=== PATIENT | male | born 1995 | race Caucasian/White ===

== ENCOUNTER 2021-10-14 17:31 | Emergency (ER) | payer OTHER, SELFPAY ==
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
[2021-10-14 17:45] VITALS: BP 110/74; PULSE 89; RESP 14; O2SAT 95; BMI 28.0
[2021-10-14] MEDS: Haloperidol Lactate 5 MG/ML VIAL IM (17:45)
[2021-10-14] MEDS: diphenhydrAMINE HCL 50 MG/ML VIAL IM (17:45)
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
[2021-10-14 18:32] LABS: MANUAL DIFF FLAG NO
[2021-10-14 18:35] LABS: Basophils Absolute Auto 0.1 X10*3/uL (0.0-0.2); Eosinophils Percent Auto 0.5 % (0-4); Hematocrit 42.7 % (42.0-52.0); Imm Gran Abs Auto 0.02 X10*3/uL (0.00-0.03); Imm Gran Pct Auto 0.3 % (0.0-0.4); Lymphocytes Absolute Auto 1.4 X10*3/uL (1.2-4.9); Lymphocytes Percent Auto 18.8 % (20-40); Mean Corpuscular HGB Conc 35.1 g/dl (31.0-36.0); Mean Corpuscular Hemoglobin 31.8 pg (27.0-33.0); Mean Corpuscular Volume 90.5 fL (80.0-98.0); Mean Platelet Volume 9.4 fL (9.4-12.4); Monocytes Absolute Auto 0.5 X10*3/uL (0.1-1.2); Monocytes Percent Auto 6.3 % (2-11); Neutrophils Absolute Auto 5.6 x10*3/uL (2.0-8.3); Neutrophils Percent Auto 73.1 % (45-73); Platelet Count 260 X10*3/uL (160-400); Red Blood Count 4.72 X10*6/uL (4.60-5.80); White Blood Count 7.6 X10*3/uL (4.8-10.8)
[2021-10-14 18:37] LABS: Appearance Urine CLEAR; Color Urine DK YELLOW; Glucose Urine UA NEG (NEG); Leukocyte Esterase Urine NEG (NEG); Nitrite Urine NEG (NEG); PH 6.5 (5.0-8.0); Urine Blood NEG (NEG); Urine Ketones 5 MG/DL (NEG); Urine Protein TRACE MG/DL (NEG-TRACE)
[2021-10-14 18:46] LABS: Ethanol < 10 mg/dL
[2021-10-14 18:48] LABS: Anion Gap 12 (12-20); Blood Urea Nitrogen 11 mg/dL (9-16); Calcium 10.3 mg/dL (8.4-10.2); Carbon Dioxide 26 mmol/L (22-29); Chloride 106 mmol/L (96-108); Estimated Glomerular Filt Rate > 60; Glucose Random 110 mg/dL (60-115); Potassium 4.1 mmol/L (3.3-5.1); Sodium 140 mmol/L (135-145)
[2021-10-14 18:49] LABS: Amphetamine Screen Urine POSITIVE (Not Detect); Barbiturates, Urine Not Detected (Not Detect); Benzodiazepines Screen Urine POSITIVE (Not Detect); Cannabinoid Screen Urine POSITIVE (Not Detect); Cocaine Screen Urine Not Detected (Not Detect); Fentanyl, urine POSITIVE (Not Detect); Opiate Screen Urine POSITIVE (Not Detect); Phencyclidine Screen Urine Not Detected (Not Detect)
[2021-10-14 19:14] VITALS: BP 100/69; PULSE 84; RESP 14; O2SAT 100
[2021-10-14 19:40] LABS: COVID-19 Test Negative (Negative); IDNOW Serial# 55D5AD1C
[2021-10-14] MEDS: LORazepam 2 MG/ML VIAL IM (19:41)
--- NOTE | 2021-10-14 19:42 | PC.NURSE ---
PT WAS MEDICATED BY RACHELL SAXENA AND CARLOS RN @[id number]. THIS RN DOCUMENTED MEDICATIONS
--- NOTE | 2021-10-14 20:40 | MHC.RECOVSUP ---
? Reason for consult:Recovery Support o Current location:[address] [place] [address] o Identified substance use concern:Polysubstance - Support ? Intervention: o Harm reduction discussion ? Plan: o Follow up tomorrow o ? Additional information:Patient is uncooperative. Patient looked directly at me an refused to engage with me. f/u tomorrow
[2021-10-15 00:31] VITALS: RESP 12
--- NOTE | 2021-10-15 00:52 | PC.NURSE ---
Patient refusing any interventions and refused tetanus
--- NOTE | 2021-10-15 01:01 | PC.NURSE ---
Patient woken up and given a sandwich and soda. Patient has been discharged.
== END 2021-10-15 01:21 | disposition home or self-care (01) ==
PROVIDERS: Nurse Practitioner Family; Emergency Provider Emergency Medicine
DX: F19.159 Other psychoactive substance abuse with psychoactive substance-induced psychotic disorder, unspecified (principal); R45.6 Violent behavior; S00.81XA Abrasion of other part of head, initial encounter; S80.211A Abrasion, right knee, initial encounter; S60.811A Abrasion of right wrist, initial encounter; X58.XXXA Exposure to other specified factors, initial encounter; Y93.9 Activity, unspecified; Y92.9 Unspecified place or not applicable; Y99.9 Unspecified external cause status; Z20.822 Contact with and (suspected) exposure to COVID-19
CPT/HCPCS: 36415; 70450; 80048; 80307; 81003; 82077; 85025; 87635; 96372; 99284; 99285; J1200; J2060

== ENCOUNTER 2021-10-26 21:29 | Emergency (ER) | payer OTHER, SELFPAY ==
[2021-10-26 21:39] VITALS: BP 117/71; BP 120/68; PULSE 72; PULSE 96; RESP 22; TEMP 36.7; O2SAT 98; O2SAT 99; BMI 29.2
--- NOTE | 2021-10-26 22:03 | ED_ITS ---
HPI - General Adult General Chief complaint: ETOH/Substance Use Stated complaint: WITHDRAWALS Time Seen by Provider: 10/26/21 22:01 Source: patient and EMS Mode of arrival: EMS Limitations: no limitations History of Present Illness HPI narrative: 26-year-old male BIBA for evaluation of drug withdrawal symptoms. 26-year-old male with history of IV drug abusing and alcohol abuse, patient stated that his been using street Xanax about 20 mg daily, last use was 24 hours ago, patient was brought in by ambulance after having withdrawal symptoms, been anxious, muscle twitch, patient reported that he had withdrawal symptoms earlier. Patient declined SI or HI or hallucination. Related Data Allergies Allergy/AdvReac Type Severity Reaction Status Date / Time No Known Allergies Allergy Unverified 04/05/20 19:51 [No Known Allergies*] Review of Systems Review of Systems: All other systems are reviewed and are negative Constitutional: Reports as per HPI and Reports no additional constitutional complaints Eyes: Reports as per HPI and Reports no additional eye complaints Reports system reviewed and no additional complaints, except as documented Cardiovascular: Reports as per HPI and Reports no additional cardiovascular complaints Respiratory: Reports as per HPI and Reports no additional respiratory complaints Gastrointestinal: Reports as per HPI and Reports no additional gastrointestinal complaints Genitourinary: Reports no additional female genitourinary complaints Musculoskeletal: Reports no additional musculoskeletal complaints Skin/Breast: Reports system reviewed and no additional complaints, except as docu Psychiatric: Reports no additional psychiatric complaints Endocrine: Reports no additional endocrine complaints Hematologic/Lymphatic: Reports no additional hematologic/lymphatic complaints Allergic/Immunologic: Reports no additional allergic/immunologic complaints Reports system reviewed and no additional complaints, except as documented and Reports Abnormal speech present [facility], [facility] Social History Social History Alcohol intake: current Advance Directives: No Advance Directives Information Provided: No Physical Exam ED Vital Signs: Vital Signs - 24 hr 10/26/21 21:39 10/26/21 22:27 Temperature 98.0 F 98.0 F Pulse Rate 96 89 Respiratory Rate 22 H 15 Blood Pressure 117/71 113/62 Pulse Oximetry 98 95 BMI result Body Mass Index 29.2 Vital signs have been reviewed as appeared to be correct. Blood pressure normal. Heart rate normal. Respiration rate normal. Temperature normal. Oxygen saturation normal. Appearance: Anxious,Oriented X3. No acute distress. Head: Normal external exam. Normocephalic. Atraumatic. No Garza signs noted. No raccoon eyes noted Eyes: PERRLA. EOMI. Conjunctiva and sclera normal. Eyelids normal. ENT: TM's Normal. Pharynx normal. Uvula midline. Moist mucous membranes. No trismus noted. No drooling noted. No muffled voice noted. Neck: Normal inspection. Neck supple. FROM. No adenopathy. Thyroid Normal. No meningeal signs. No neck mass noted. CVS: Normal heart rate and rhythm. Heart sound normal. No murmurs noted. Pulses normal throughout. Respiratory: No respiratory distress. Painless inspiration. Breath sounds normal. No wheezes/rales/rhonchi noted. Chest nontender. No accessory muscle usage noted or decreased air movement noted. Abdomen: Soft and nontender. Bowel sounds normal in all 4 quadrants. No distention noted. No organomegaly noted. No visible injury noted. Back: No CVA tenderness. Full range of motion noted. Skin: Skin warm and dry. Normal skin color. Normal skin turgor. No rashes/lesions/lacerations noted. Extremities: No lower extremity edema. Extremities exhibit normal range of motion. Extremities nontender. Neuro: Oriented X 3. Cranial nerve exam: II-XII are grossly intact No motor deficit. No sensory deficit. Reflexes normal. Course Course Course Narrative: Assessment and plan. 26-year-old male history of Xanax abuse last use was 24 hours ago came in for evaluation of withdrawal symptoms, patient has unremarkable labs, stable vital signs. Patient was given 1 mg of Ativan IV, patient is in a showing signs or symptoms of benzo withdrawal, patient requesting to leave, patient was offered care team evaluation and possible placement to detox, patient declined I would like to go home. Medical Decision Making Lab Data Lab results reviewed: Yes I reviewed the patient's lab results. Result diagrams: 10/26/21 22:29 10/26/21 22:29 Labs: Lab Results 10/26/21 10/26/21 10/26/21 Range/Units 22:29 22:29 22:29 WBC 8.7 (4.8-10.8) X10*3/uL RBC 4.21 L (4.60-5.80) X10*6/uL Hgb 13.3 L (14.0-18.0) g/dl Hct 37.9 L (42.0-52.0) % MCV 90.0 (80.0-98.0) fL MCH 31.6 (27.0-33.0) pg MCHC 35.1 (31.0-36.0) g/dl RDW 12.1 (11.0-16.0) % Plt Count 309 (160-400) X10*3/uL MPV 9.3 L (9.4-12.4) fL Immature Gran % (Auto) 0.2 (0.0-0.4) % Neut % (Auto) 77.0 H (45-73) % Lymph % (Auto) 13.0 L (20-40) % [place] % (Auto) 8.5 (2-11) % Eos % (Auto) 0.7 (0-4) % Baso % (Auto) 0.6 (0-2) % Lymph # (Auto) 1.1 L (1.2-4.9) X10*3/uL [place] # (Auto) 0.7 (0.1-1.2) X10*3/uL Eos # (Auto) 0.1 (0.0-0.4) X10*3/uL Baso # (Auto) 0.1 (0.0-0.2) X10*3/uL Abs Immat Gran (auto) 0.02 (0.00-0.03) X10*3/uL Absolute Neuts (auto) 6.7 (2.0-8.3) x10*3/uL Absolute Nucleated RBC 0.000 (0.0-0.012) X10*3/uL Nucleated RBC % (auto) 0.0 (0.0-0.2) /100WBC Sodium 140 (135-145) mmol/L Potassium 3.7 (3.3-5.1) mmol/L Chloride 108 (96-108) mmol/L Carbon Dioxide 20 L (22-29) mmol/L Anion Gap 16 (12-20) BUN 7 L (9-16) mg/dL Creatinine 0.76 (0.5-1.4) mg/dL Estim Creat Clear Calc 155.3 Estimated GFR > 60 Random Glucose 96 (60-115) mg/dL Calcium 9.4 D (8.4-10.2) mg/dL Total Bilirubin 0.6 (0.0-1.0) mg/dL Direct Bilirubin 0.3 (0.0-0.5) mg/dL AST 30 (5-37) U/L ALT 35 (0-40) U/L Alkaline Phosphatase 80 (39-117) U/L Total Protein 7.2 (6.5-8.0) g/dL Albumin 4.3 (3.5-5.0) g/dL Lipase 10 (8-78) U/L Ethyl Alcohol < 10 mg/dL Discharge Plan Discharge Clinical Impression: Substance abuse Patient Disposition: Home, Self-Care Instructions: Polysubstance Abuse (ED) Referrals: Physician,Twila J [Primary Care Provider] -
[2021-10-26] MEDS: LORazepam 2 MG/ML VIAL 1 MG IVPUSH (22:24)
[2021-10-26] MEDS: 0.9 % Sodium Chloride 1,000 ML 999 ML IV (22:24)
[2021-10-26 22:27] VITALS: BP 113/62; PULSE 89; RESP 15; TEMP 36.7; O2SAT 95
[2021-10-26 22:40] LABS: Basophils Absolute Auto 0.1 X10*3/uL (0.0-0.2); Basophils Percent Auto 0.6 % (0-2); Eosinophils Absolute Auto 0.1 X10*3/uL (0.0-0.4); Eosinophils Percent Auto 0.7 % (0-4); Hematocrit 37.9 % (42.0-52.0); Hemoglobin 13.3 g/dl (14.0-18.0); Imm Gran Abs Auto 0.02 X10*3/uL (0.00-0.03); Imm Gran Pct Auto 0.2 % (0.0-0.4); Lymphocytes Absolute Auto 1.1 X10*3/uL (1.2-4.9); MANUAL DIFF FLAG NO; Mean Corpuscular HGB Conc 35.1 g/dl (31.0-36.0); Mean Corpuscular Hemoglobin 31.6 pg (27.0-33.0); Mean Platelet Volume 9.3 fL (9.4-12.4); Monocytes Absolute Auto 0.7 X10*3/uL (0.1-1.2); Monocytes Percent Auto 8.5 % (2-11); Neutrophils Absolute Auto 6.7 x10*3/uL (2.0-8.3); Platelet Count 309 X10*3/uL (160-400); Red Blood Count 4.21 X10*6/uL (4.60-5.80); Red Cell Distribution Width 12.1 % (11.0-16.0); White Blood Count 8.7 X10*3/uL (4.8-10.8)
[2021-10-26 22:54] LABS: Ethanol < 10 mg/dL
[2021-10-26 22:56] LABS: Alanine Aminotransferase 35 U/L (0-40); Albumin Level 4.3 g/dL (3.5-5.0); Alkaline Phosphatase 80 U/L (39-117); Anion Gap 16 (12-20); Aspartate Amino Transferase 30 U/L (5-37); Bilirubin Direct 0.3 mg/dL (0.0-0.5); Bilirubin Total 0.6 mg/dL (0.0-1.0); Blood Urea Nitrogen 7 mg/dL (9-16); Calcium 9.4 mg/dL (8.4-10.2); Carbon Dioxide 20 mmol/L (22-29); Chloride 108 mmol/L (96-108); Creatinine Clr Calc Pharmacy 155.3; Estimated Glomerular Filt Rate > 60; Glucose Random 96 mg/dL (60-115); Lipase 10 U/L (8-78); Potassium 3.7 mmol/L (3.3-5.1); Sodium 140 mmol/L (135-145); Total Protein 7.2 g/dL (6.5-8.0)
[2021-10-26 23:31] VITALS: BP 111/83; PULSE 95; RESP 18; O2SAT 98
== END 2021-10-26 23:45 | disposition home or self-care (01) ==
PROVIDERS: Emergency Provider Emergency Medicine
DX: F19.10 Other psychoactive substance abuse, uncomplicated (principal); F41.9 Anxiety disorder, unspecified; F10.10 Alcohol abuse, uncomplicated; Y90.0 Blood alcohol level of less than 20 mg/100 ml
CPT/HCPCS: 36415; 80048; 80076; 82077; 83690; 85025; 96361; 96374; 99284; J2060

== ENCOUNTER 2021-10-27 00:09 | Emergency (ER) | payer OTHER, SELFPAY ==
[2021-10-27 00:59] VITALS: BP 109/75; PULSE 88; RESP 18; TEMP 36.9; O2SAT 98; BMI 26.6
--- NOTE | 2021-10-27 02:30 | ED.GENADULT ---
HPI - General Adult General Chief complaint: General Medical Stated complaint: pain everywhere Time Seen by Provider: 10/27/21 02:29 Source: patient Mode of arrival: ambulatory Limitations: no limitations History of Present Illness HPI narrative: 26-year-old male history of drug abuse, came in for a concern of withdrawal symptoms. Patient use street Xanax 20 mg daily last use was 24 hours ago patient was seen in the emergency department earlier today was discharged with stable vital sign and no symptoms of withdrawal, patient is homeless have no place to go, patient is declining to discuss with care team or going to a detox patient is opposing going to detox. Patient is asking for Xanax or benzo to help him to relax, at this point patient is not showing symptoms of withdrawal and have stable vital signs. Related Data Allergies Allergy/AdvReac Type Severity Reaction Status Date / Time No Known Allergies Allergy Unverified 04/05/20 19:51 [No Known Allergies*] Review of Systems Review of Systems: All other systems are reviewed and are negative Constitutional: Reports as per HPI and Reports no additional constitutional complaints Eyes: Reports as per HPI and Reports no additional eye complaints Reports system reviewed and no additional complaints, except as documented Cardiovascular: Reports as per HPI and Reports no additional cardiovascular complaints Respiratory: Reports as per HPI and Reports no additional respiratory complaints Gastrointestinal: Reports as per HPI and Reports no additional gastrointestinal complaints Genitourinary: Reports no additional female genitourinary complaints Musculoskeletal: Reports no additional musculoskeletal complaints Skin/Breast: Reports system reviewed and no additional complaints, except as docu Psychiatric: Reports no additional psychiatric complaints Endocrine: Reports no additional endocrine complaints Hematologic/Lymphatic: Reports no additional hematologic/lymphatic complaints Allergic/Immunologic: Reports no additional allergic/immunologic complaints Reports system reviewed and no additional complaints, except as documented and Reports Abnormal speech present [facility] Social History Social History Alcohol intake: current Advance Directives: No Advance Directives Information Provided: No Physical Exam ED Vital Signs: Vital Signs - 24 hr 10/27/21 00:59 10/27/21 03:26 Temperature 98.5 F Pulse Rate 88 82 Respiratory Rate 18 18 Blood Pressure 109/75 115/75 Pulse Oximetry 98 99 BMI result Body Mass Index 26.6 Vital signs have been reviewed as appeared to be correct. Blood pressure normal. Heart rate normal. Respiration rate normal. Temperature normal. Oxygen saturation normal. Appearance: Alert. Oriented X3. No acute distress. Head: Normal external exam. Normocephalic. Atraumatic. No Garza signs noted. No raccoon eyes noted Eyes: PERRLA. EOMI. Conjunctiva and sclera normal. Eyelids normal. ENT: TM's Normal. Pharynx normal. Uvula midline. Moist mucous membranes. No trismus noted. No drooling noted. No muffled voice noted. Neck: Normal inspection. Neck supple. FROM. No adenopathy. Thyroid Normal. No meningeal signs. No neck mass noted. CVS: Normal heart rate and rhythm. Heart sound normal. No murmurs noted. Pulses normal throughout. Respiratory: No respiratory distress. Painless inspiration. Breath sounds normal. No wheezes/rales/rhonchi noted. Chest nontender. No accessory muscle usage noted or decreased air movement noted. Abdomen: Soft and nontender. Bowel sounds normal in all 4 quadrants. No distention noted. No organomegaly noted. No visible injury noted. Back: No CVA tenderness. Full range of motion noted. Skin: Skin warm and dry. Normal skin color. Normal skin turgor. No rashes/lesions/lacerations noted. Extremities: No lower extremity edema. Extremities exhibit normal range of motion. Extremities nontender. Neuro: Oriented X 3. Cranial nerve exam: II-XII are grossly intact No motor deficit. No sensory deficit. Reflexes normal. Course Course Course Narrative: Assessment and plan. 26-year-old male history of street drug abuser, patient is declining going to a detox or discussing with care team, patient is seeking benzo in the emergency department, patient have stable vital sign with no clinical symptoms of withdrawal patient is receiving Zofran and Flexeril. Discharge Plan Discharge Clinical Impression: Substance abuse Patient Disposition: Home, Self-Care Instructions: Polysubstance Abuse (ED) Referrals: Physician,Twila J [Primary Care Provider] -
[2021-10-27 03:26] VITALS: BP 115/75; PULSE 82; RESP 18; O2SAT 99
== END 2021-10-27 06:19 | disposition home or self-care (01) ==
PROVIDERS: Emergency Provider Emergency Medicine
DX: M79.10 Myalgia, unspecified site (principal); Z79.899 Other long term (current) drug therapy
CPT/HCPCS: 99283

== ENCOUNTER 2021-11-05 05:15 | Emergency (ER) | payer OTHER, SELFPAY ==
[2021-11-05 05:20] VITALS: BP 113/72; PULSE 60; O2SAT 100
[2021-11-05 05:26] VITALS: BP 107/61; PULSE 81; RESP 14; TEMP 36.8; O2SAT 98; BMI 27.3
--- NOTE | 2021-11-05 06:37 | ED.GENADULT ---
HPI - General Adult General Chief complaint: Seizure Stated complaint: seizure? Time Seen by Provider: 11/05/21 06:37 Source: patient Mode of arrival: EMS History of Present Illness HPI narrative: 26-year-old male with arrival by EMS and known benzodiazepine dependence states that he had an unwitnessed seizure. Patient reports that his friend witnessed him having a seizure and he suspects that it occurred due to benzo withdrawal. Patient denies any fever, chills, nausea, vomiting, diaphoresis. Patient does report that last benzodiazepine was 2 days ago and denies any seizure history. He is declining any detox and denies any other alcohol or drug use. Related Data Allergies Allergy/AdvReac Type Severity Reaction Status Date / Time No Known Allergies Allergy Unverified 04/05/20 19:51 [No Known Allergies*] Review of Systems Review of Systems: Pertinent positives and negatives as stated in HPI 10 point review of systems is otherwise negative PMFSH Past Medical History Source: nursing notes reviewed Social History Social History Alcohol intake: current Alcohol intake frequency: does not drink Patient Tobacco Use Status: Current everyday Tobacco user Smoked in Last 30 Days: Yes Use of substances other than those prescribed or required for medical reasons: Yes Substance Use Type: Other Substance Use Type Other:: BENZO Last Used Substance: Days (ago) Advance Directives: No Advance Directives Information Provided: Yes Physical Exam ED Vital Signs: Vital Signs - 24 hr 11/05/21 05:26 Temperature 98.2 F Pulse Rate 81 Respiratory Rate 14 Blood Pressure 107/61 Pulse Oximetry 98 BMI result Body Mass Index 27.3 VITAL SIGNS: Reviewed. GENERAL: Well developed, well nourished, in no acute distress. HEAD: Normocephalic/atraumatic EYES: PERRLA, EOMI EARS: Ext canals without abnormality, TMs non-bulging and non-erythematous NOSE: Nares patent bilateral OROPHARYNX: no oral lesions noted, posterior pharynx clear NECK: Supple, no adenopathy LUNGS: Normal breath sounds. No adventitious sounds or accessory muscle use. SpO2<98> CARDIOVASCULAR: Regular rate and rhythm without noted murmurs ABDOMEN: Soft, non-tender, non-distended with bowel sounds, no nausea or vomiting noted SKIN: Inspection of the skin reveals no rashes, no diaphoresis NEUROLOGIC: Alert and oriented x 4. Strength and sensation to light touch were grossly intact x 4, no tremor Course Course Course Narrative: 26-year-old male with history and clinical presentation consistent with benzodiazepine dependency but adamantly declines options for detox at this time. Other he states that he had a seizure there is limited evidence of any benzodiazepine withdrawal, specifically, he is not tachycardic he is not nauseous or vomiting or diaphoretic he is noted to be restless. Patient was provided with Zofran and Bentyl and will otherwise be discharged home in stable condition with and a list of detox facilities. Discharge Plan Discharge Clinical Impression: Benzodiazepine dependence Patient Disposition: Home, Self-Care Instructions: Benzodiazepine Abuse (ED) Additional Instructions: You have been provided with a list of detox options, I strongly recommend you consider these. Return to the ER for any new or concerning symptoms. Referrals: Dolores Boggs MD [Primary Care Provider] -
[2021-11-05] MEDS: clonazePAM 0.5 MG TABLET 0.25 MG PO (06:48)
[2021-11-05] MEDS: Dicyclomine HCl 10 MG CAPSULE PO (06:55)
[2021-11-05] MEDS: Ondansetron ODT 4 MG TAB.RAPDIS TRANSLINGU (06:55)
[2021-11-05 06:56] VITALS: BP 137/80; PULSE 61; RESP 16; O2SAT 99
== END 2021-11-05 07:12 | disposition home or self-care (01) ==
PROVIDERS: Emergency Provider Student in an Organized Health Care Education/Training Program; PCP Internal Medicine
DX: R56.9 Unspecified convulsions (principal); F13.20 Sedative, hypnotic or anxiolytic dependence, uncomplicated; F17.210 Nicotine dependence, cigarettes, uncomplicated; Z71.6 Tobacco abuse counseling
CPT/HCPCS: 99283; 99284

== ENCOUNTER 2022-01-25 20:22 | Emergency (ER) | payer OTHER, SELFPAY ==
[2022-01-25] MEDS: Midazolam HCl/PF 2 MG/2 ML VIAL IM (20:30)
[2022-01-25] MEDS: diphenhydrAMINE HCL 50 MG/ML VIAL IM (20:30)
[2022-01-25] MEDS: Haloperidol Lactate 5 MG/ML VIAL IM (20:30)
[2022-01-25 20:33] VITALS: BP 99/64; PULSE 88; RESP 20; TEMP 36.9; O2SAT 96; BMI 25.8
--- NOTE | 2022-01-25 20:36 | ED_ITS ---
HPI - Altered Mental Status General Chief Complaint: Altered Mental Status Stated Complaint: ams combative Time Seen by Provider: 01/25/22 20:34 Source: patient and EMS Mode of arrival: EMS Limitations: altered mental status History of Present Illness HPI narrative: fighting with EMS found walking around rotary no signs of trauma, laughing stating he does meth complaint: altered mental status and intoxication Onset (ago): unknown Severity: moderate Consistency of symptoms: constant Context: drug abuse Associated symptoms: denies other symptoms Related Data Allergies Allergy/AdvReac Type Severity Reaction Status Date / Time No Known Allergies Allergy Unverified 04/05/20 19:51 [No Known Allergies*] Review of Systems Review of Systems: ROS unable to be obtained due to altered mental status [facility] Past Medical History Source: old records reviewed Medical History Active substance abuse Social History Social History Alcohol intake: current Alcohol intake frequency: does not drink Patient Tobacco Use Status: Current everyday Tobacco user Substance Use Type: Other Physical Exam ED Vital Signs: Vital Signs - 24 hr 01/25/22 20:33 01/25/22 22:09 Temperature 98.5 F 97.5 F Pulse Rate 88 96 Respiratory Rate 20 16 Blood Pressure 99/64 101/61 Pulse Oximetry 96 95 Oxygen Delivery Method Room Air Room Air BMI result Body Mass Index 25.8 Appearance: Alert. Oriented X1. intermittently calm then yelling at EMS - profane language wants to fight, fuck all of you. attempting to leave Eyes: Pupils equal, round and reactive to light. no nystagmus ENT: Pharynx normal. Atraumatic Neck: Normal inspection. Neck supple. CVS: tachycardic heart rate and rhythm. Pulses normal. Respiratory: No respiratory distress. Breath sounds normal. Abdomen: Soft and nontender. Skin: Skin warm and dry. Normal skin color. Normal skin turgor. Extremities: No lower extremity edema. No calf ttp Neuro: Oriented X 1. No motor deficit. No sensory deficit. Course Course Course Narrative: more calm after medications Physician observation started at 11pm. Patient placed in physician observation because the patient needed more time for clinical sobriety and reassessments. At the time observation was started the patient's vitals were stable, patient is sleeping post medications, Neuro: nonfocal, CV RRR, Lungs clear MDM - Altered Mental Status MDM Narrative Medical decision making narrative: 26 yo male with hx of substance abuse found wandering no signs of trauma he is intermittently agitated at times and threatening to staff, attempting to leave he is confused appears intoxicated. I do not see any evidence of head trauma at this time. Will need chemical restraint given threats and agitation as well as attempting to leave. IM mediations ordered. Will observe until more clear. Lab Data Result diagrams: 01/25/22 22:36 01/25/22 22:36 Labs: Lab Results 01/25/22 01/25/22 01/25/22 Range/Units 22:36 22:36 22:36 WBC 8.9 (4.8-10.8) X10*3/uL RBC 4.00 L (4.60-5.80) X10*6/uL Hgb 12.6 L (14.0-18.0) g/dl Hct 36.5 L (42.0-52.0) % MCV 91.3 (80.0-98.0) fL MCH 31.5 (27.0-33.0) pg MCHC 34.5 (31.0-36.0) g/dl RDW 12.8 (11.0-16.0) % Plt Count 236 (160-400) X10*3/uL MPV 9.4 (9.4-12.4) fL Immature Gran % (Auto) 0.1 (0.0-0.4) % Neut % (Auto) 57.2 (45-73) % Lymph % (Auto) 31.8 (20-40) % [place] % (Auto) 6.8 (2-11) % Eos % (Auto) 3.3 (0-4) % Baso % (Auto) 0.8 (0-2) % Lymph # (Auto) 2.8 (1.2-4.9) X10*3/uL [place] # (Auto) 0.6 (0.1-1.2) X10*3/uL Eos # (Auto) 0.3 (0.0-0.4) X10*3/uL Baso # (Auto) 0.1 (0.0-0.2) X10*3/uL Abs Immat Gran (auto) 0.01 (0.00-0.03) X10*3/uL Absolute Neuts (auto) 5.1 (2.0-8.3) x10*3/uL Absolute Nucleated RBC 0.000 (0.0-0.012) X10*3/uL Nucleated RBC % (auto) 0.0 (0.0-0.2) /100WBC Sodium 141 (135-145) mmol/L Potassium 4.1 (3.3-5.1) mmol/L Chloride 109 H (96-108) mmol/L Carbon Dioxide 26 (22-29) mmol/L Anion Gap 10 L (12-20) BUN 9 (9-16) mg/dL Creatinine 0.92 (0.5-1.4) mg/dL Estim Creat Clear Calc 107.8 Estimated GFR > 60 Random Glucose 92 (60-115) mg/dL Calcium 8.7 D (8.4-10.2) mg/dL Total Bilirubin 0.3 (0.0-1.0) mg/dL Direct Bilirubin < 0.2 (0.0-0.5) mg/dL AST 23 (5-37) U/L ALT 30 (0-40) U/L Alkaline Phosphatase 64 (39-117) U/L Total Protein 6.2 L (6.5-8.0) g/dL Albumin 3.8 (3.5-5.0) g/dL Ethyl Alcohol < 10 mg/dL COVID-19 ([facility]) Negative (Negative) COVID-19 Clin Com See Note Discharge Plan Discharge Clinical Impression: Substance abuse Patient Disposition: Still a Patient
[2022-01-25 22:09] VITALS: BP 101/61; PULSE 96; RESP 16; TEMP 36.4; O2SAT 95
[2022-01-25 22:39] LABS: MANUAL DIFF FLAG NO
[2022-01-25 22:41] LABS: Basophils Absolute Auto 0.1 X10*3/uL (0.0-0.2); Basophils Percent Auto 0.8 % (0-2); Eosinophils Absolute Auto 0.3 X10*3/uL (0.0-0.4); Eosinophils Percent Auto 3.3 % (0-4); Hematocrit 36.5 % (42.0-52.0); Hemoglobin 12.6 g/dl (14.0-18.0); Imm Gran Abs Auto 0.01 X10*3/uL (0.00-0.03); Imm Gran Pct Auto 0.1 % (0.0-0.4); Lymphocytes Absolute Auto 2.8 X10*3/uL (1.2-4.9); Lymphocytes Percent Auto 31.8 % (20-40); Mean Corpuscular HGB Conc 34.5 g/dl (31.0-36.0); Mean Corpuscular Hemoglobin 31.5 pg (27.0-33.0); Mean Corpuscular Volume 91.3 fL (80.0-98.0); Mean Platelet Volume 9.4 fL (9.4-12.4); Monocytes Absolute Auto 0.6 X10*3/uL (0.1-1.2); Monocytes Percent Auto 6.8 % (2-11); Neutrophils Absolute Auto 5.1 x10*3/uL (2.0-8.3); Neutrophils Percent Auto 57.2 % (45-73); Platelet Count 236 X10*3/uL (160-400); Red Cell Distribution Width 12.8 % (11.0-16.0); White Blood Count 8.9 X10*3/uL (4.8-10.8)
[2022-01-25 22:55] LABS: Alanine Aminotransferase 30 U/L (0-40); Albumin Level 3.8 g/dL (3.5-5.0); Alkaline Phosphatase 64 U/L (39-117); Anion Gap 10 (12-20); Aspartate Amino Transferase 23 U/L (5-37); Bilirubin Direct < 0.2 mg/dL (0.0-0.5); Bilirubin Total 0.3 mg/dL (0.0-1.0); Blood Urea Nitrogen 9 mg/dL (9-16); Calcium 8.7 mg/dL (8.4-10.2); Carbon Dioxide 26 mmol/L (22-29); Chloride 109 mmol/L (96-108); Creatinine Clr Calc Pharmacy 107.8; Estimated Glomerular Filt Rate > 60; Ethanol < 10 mg/dL; Glucose Random 92 mg/dL (60-115); Potassium 4.1 mmol/L (3.3-5.1); Sodium 141 mmol/L (135-145); Total Protein 6.2 g/dL (6.5-8.0)
[2022-01-25 22:56] LABS: COVID-19 Test Negative (Negative); IDNOW Serial# 55D5AD1C
[2022-01-26] VITALS: BP 95/57; PULSE 69; RESP 17; O2SAT 93
[2022-01-26 02:00] VITALS: BP 105/69; PULSE 61; RESP 18; O2SAT 95
[2022-01-26 04:00] VITALS: BP 123/91; PULSE 61; RESP 18; O2SAT 97
--- NOTE | 2022-01-26 04:29 | PC.NURSE ---
Patient woke up and started to be verbally aggressive towards staff. He stated that he was leaving and we couldn't stop him. Patient was verbally abusive towards staff as well as security. Patient was unable to be redirected and security intervened. Patient at this point was
--- NOTE | 2022-01-26 04:37 | PC.NURSE ---
pt became verbal with staff insisted he can leave, words still slurred, pt attempted to leave the ed security intercepted pt and pt then became very aggressive with his words and pt was physically brought back to his bed. pt is now resting and the provider will reassess pt needs to stay.
--- NOTE | 2022-01-26 05:40 | PC.NURSE ---
Patient currently attempting to get a sober ride home per MD. Patient has made a couple of attempts but so far has not succeeded in obtaining a ride home.
== END 2022-01-26 06:40 | disposition home or self-care (01) ==
PROVIDERS: Emergency Provider Emergency Medicine
DX: F19.10 Other psychoactive substance abuse, uncomplicated (principal); R45.1 Restlessness and agitation; Z20.822 Contact with and (suspected) exposure to COVID-19; F17.200 Nicotine dependence, unspecified, uncomplicated
CPT/HCPCS: 36415; 80048; 80076; 82077; 85025; 87635; 96372; 99284; 99285; J1200; J2250

== ENCOUNTER 2022-02-09 23:13 | Emergency (ER) | payer OTHER, SELFPAY ==
--- NOTE | 2022-02-09 23:28 | ED_ITS ---
HPI - Altered Mental Status General Chief Complaint: Altered Mental Status Stated Complaint: ETOH Time Seen by Provider: 02/09/22 23:20 Source: patient Mode of arrival: EMS Limitations: altered mental status History of Present Illness HPI narrative: 26-year-old man who was brought to the emergency department for altered mental status and bizarre behavior. Information came from the police chief deputy that came to the hospital with EMS. Apparently, the police got a call from a woman who states that a stranger (the patient) walked into her apartment. The stranger was wearing underwear only. He was not aggressive or assaultive and then left. The police found the patient approximately 1 [address] away from the woman's apartment, he was wearing underwear only. The patient appeared to be confused and was delusional and hallucinating. The police noted pinpoint pupils but the patient states that he does take methadone daily. An ambulance was called an officer was in the ambulance with the patient and the paramedics. The patient suddenly became very violent and aggressive and needed to be restrained. On pre sentation to the emergency department the patient is lying on the stretcher, he does have an odor of alcohol on his breath. He does appear to be delusional. He is hypersexual and made sexual comments towards the nurses and towards the security guards. He denied drinking alcohol he denies using drugs. Use oriented to person only. In reviewing the EMR, the patient was seen on 01/25/2022 (13 days prior) for a similar complaint. The patient was altered and was combative, he was found walking around a rotary with no signs of trauma, laughing in stating that he does methamphetamine. He did not have a urinalysis from that visit but a urinalysis from 10/14/2021 was positive for opiates, fentanyl, amphetamines, benzodiazepines and marijuana. His alcohol level was below detectable limits on both of those visits. Related Data Allergies Allergy/AdvReac Type Severity Reaction Status Date / Time No Known Allergies Allergy Unverified 04/05/20 19:51 [No Known Allergies*] Review of Systems Review of Systems: Yes Unobtainable due to mental status PMFSH Past Medical History PMFSH Narrative: Past medical history: Polysubstance use disorder. Social history: Patient is altered the time of my interview but he states that he did not drink alcohol and tobacco use. He does state that he is in a methadone program. Medical History Active substance abuse Social History Social History Alcohol intake: current Alcohol intake frequency: does not drink Patient Tobacco Use Status: Current everyday Tobacco user Substance Use Type: Other Advance Directives: No Advance Directives Information Provided: Yes Physical Exam ED Vital Signs: Vital Signs - 24 hr 02/09/22 23:30 02/10/22 00:00 02/10/22 00:00 Pulse Rate 99 80 75 Respiratory Rate 20 21 H 20 Blood Pressure 181/79 H 129/79 Pulse Oximetry 97 94 95 Oxygen Delivery Method Room Air Room Air Room Air Oxygen Flow Rate 02/10/22 00:15 02/10/22 00:30 02/10/22 00:45 Pulse Rate 80 78 77 Respiratory Rate 20 21 H 14 Blood Pressure 121/72 105/61 90/53 L Pulse Oximetry 92 96 93 Oxygen Delivery Method Nasal Cannula Nasal Cannula Nasal Cannula Oxygen Flow Rate 2 2 2 02/10/22 01:00 02/10/22 01:54 02/10/22 02:00 Pulse Rate 74 67 67 Respiratory Rate 17 16 17 Blood Pressure 93/55 L 97/60 96/59 L Pulse Oximetry 93 95 94 Oxygen Delivery Method Nasal Cannula Room Air Room Air Oxygen Flow Rate 2 BMI result Body Mass Index 27.3 Const Other: The patient is awake, he is delusional, he is an underwear and sneakers only. He is making sexual comments to the security guards, the nursing staff and to me. He is currently cooperative and compliant [facility] Head: Yes normal to inspection, Yes normocephalic and Yes atraumatic Ears: external ears normal General nose exam: Normal external nose present Face and sinus: Yes normal facial exam Mouth: Normal oral and palatal mucosa present Throat: Yes posterior oropharynx normal Eyes General: appearance normal, both eyes and all related structures Pupils: Equal, round and reactive pupils present Neck Neck: Yes normal visual inspection, Yes no lymphadenopathy, Yes trachea midline and Yes supple Chest Chest palpation & inspection: normal inspection of the chest and normal palpation of entire chest wall Resp Effort & Inspection: normal respiratory effort and able to speak in complete sentences Auscultation: clear to auscultation bilaterally Cardio Rate: regular rate Rhythm: regular rhythm Heart sounds: S1 normal heart sound present, S2 normal heart sound present and no murmurs GI Inspection: Yes normal to inspection Palpation (GI): Soft to palpation, nontender and no guarding Auscultation: normal bowel sounds General: Yes no CVA tenderness Back/Spine/Pelvis Back: no CVA tenderness Skin General skin exam: no rashes or lesions noted Neuro Other: Oriented to person only Cranial nerves: Yes CN's II-XII intact bilaterally and Yes Equal, round and reactive pupils present Motor exam (neuro): 5/5 motor strength present throughout Extrem General: Yes normal to inspection Psych Other: In underwear and sneakers only Speech and movement: Slurred speech present Affect: Other affect and mood findings present (Hypersexual) Attitude: cooperative Thought content: other (Delusion) Insight: Poor insight present (Psych) Course Course Course Narrative: 26-year-old male who presents emergency department for evaluation of altered mental status, was found walking in the street in his underwear in sneakers only. He did become aggressive during transport but here in the emergency department he has been cooperative but is hypersexual and delusional. Patient h as had similar presentations in the past and has had tox screen positive for opiates, fentanyl, amphetamines, and benzodiazepines. Patient's presentation is most likely secondary to polysubstance use again. The patient did tell me that he is feeling anxious he did agree to get medications for his anxiety and to help him stay calm therefore he was given Haldol 10 mg IM and Versed 2 mg IM. I did order an evaluation to include CBC, CMP, CK, lactate, urine tox screen, urinalysis. Patient will be treated with normal saline 1 L IV. He will be placed on a cardiac and O2 saturation monitor. 0041: Laboratory evaluation: CBC normal. Glucose elevated 126. CK mildly elevated at 462. Alcohol level below detectable limits. COVID-19 is negative. Urine tox screen is pending collection. 0654: Start physician observation: The patient has been sleeping since receiving his dose of Haldol and Versed. The patient will continue to be monitored until he is awake and able to be interviewed to see if you suicidal/homicidal or would like to talk to our strength and conditioning coach is regarding his substance use disorder. Patient is sleeping at this time, lungs were clear, heart regular rate rhythm, abdomen soft nontender. Patient's care was turned over to my colleague, Dr. Platt. MDM - Altered Mental Status Lab Data Result diagrams: 02/10/22 00:41 02/10/22 00:41 Labs: Lab Results 02/10/22 02/10/22 02/10/22 Range/Units 00:41 00:41 00:41 WBC 8.0 (4.8-10.8) X10*3/uL RBC 4.33 L (4.60-5.80) X10*6/uL Hgb 13.8 L (14.0-18.0) g/dl Hct 39.5 L (42.0-52.0) % MCV 91.2 (80.0-98.0) fL MCH 31.9 (27.0-33.0) pg MCHC 34.9 (31.0-36.0) g/dl RDW 12.4 (11.0-16.0) % Plt Count 251 (160-400) X10*3/uL MPV 10.2 (9.4-12.4) fL Immature Gran % (Auto) 0.1 (0.0-0.4) % Neut % (Auto) 58.0 (45-73) % Lymph % (Auto) 30.3 (20-40) % [place] % (Auto) 7.2 (2-11) % Eos % (Auto) 3.4 (0-4) % Baso % (Auto) 1.0 (0-2) % Lymph # (Auto) 2.4 (1.2-4.9) X10*3/uL [place] # (Auto) 0.6 (0.1-1.2) X10*3/uL Eos # (Auto) 0.3 (0.0-0.4) X10*3/uL Baso # (Auto) 0.1 (0.0-0.2) X10*3/uL Abs Immat Gran (auto) 0.01 (0.00-0.03) X10*3/uL Absolute Neuts (auto) 4.7 (2.0-8.3) x10*3/uL Absolute Nucleated RBC 0.000 (0.0-0.012) X10*3/uL Nucleated RBC % (auto) 0.0 (0.0-0.2) /100WBC Sodium 139 (135-145) mmol/L Potassium 3.9 (3.3-5.1) mmol/L Chloride 107 (96-108) mmol/L Carbon Dioxide 25 (22-29) mmol/L Anion Gap 11 L (12-20) BUN 14 D (9-16) mg/dL Creatinine 1.23 (0.5-1.4) mg/dL Estim Creat Clear Calc 86.5 Estimated GFR > 60 Random Glucose 126 H D (60-115) mg/dL Lactic Acid (0.5-2.0) mmol/L Calcium 9.4 D (8.4-10.2) mg/dL Total Bilirubin 0.4 (0.0-1.0) mg/dL AST 30 (5-37) U/L ALT 32 (0-40) U/L Alkaline Phosphatase 78 D (39-117) U/L Total Creatine Kinase 462 H (38-174) U/L Total Protein 6.7 (6.5-8.0) g/dL Albumin 4.0 (3.5-5.0) g/dL Lipase 21 (8-78) U/L TSH (0.32-4.0) uIU/mL Ethyl Alcohol mg/dL COVID-19 ([facility]) Negative (Negative) COVID-19 Clin Com See Note 02/10/22 02/10/22 Range/Units 00:41 00:41 WBC (4.8-10.8) X10*3/uL RBC (4.60-5.80) X10*6/uL Hgb (14.0-18.0) g/dl Hct (42.0-52.0) % MCV (80.0-98.0) fL MCH (27.0-33.0) pg MCHC (31.0-36.0) g/dl RDW (11.0-16.0) % Plt Count (160-400) X10*3/uL MPV (9.4-12.4) fL Immature Gran % (Auto) (0.0-0.4) % Neut % (Auto) (45-73) % Lymph % (Auto) (20-40) % [place] % (Auto) (2-11) % Eos % (Auto) (0-4) % Baso % (Auto) (0-2) % Lymph # (Auto) (1.2-4.9) X10*3/uL [place] # (Auto) (0.1-1.2) X10*3/uL Eos # (Auto) (0.0-0.4) X10*3/uL Baso # (Auto) (0.0-0.2) X10*3/uL Abs Immat Gran (auto) (0.00-0.03) X10*3/uL Absolute Neuts (auto) (2.0-8.3) x10*3/uL Absolute Nucleated RBC (0.0-0.012) X10*3/uL Nucleated RBC % (auto) (0.0-0.2) /100WBC Sodium (135-145) mmol/L Potassium (3.3-5.1) mmol/L Chloride (96-108) mmol/L Carbon Dioxide (22-29) mmol/L Anion Gap (12-20) BUN (9-16) mg/dL Creatinine (0.5-1.4) mg/dL Estim Creat Clear Calc Estimated GFR Random Glucose (60-115) mg/dL Lactic Acid 1.4 (0.5-2.0) mmol/L Calcium (8.4-10.2) mg/dL Total Bilirubin (0.0-1.0) mg/dL AST (5-37) U/L ALT (0-40) U/L Alkaline Phosphatase (39-117) U/L Total Creatine Kinase (38-174) U/L Total Protein (6.5-8.0) g/dL Albumin (3.5-5.0) g/dL Lipase (8-78) U/L TSH 0.56 (0.32-4.0) uIU/mL Ethyl Alcohol < 10 mg/dL COVID-19 ([facility]) (Negative) COVID-19 Clin Com Discharge Plan Discharge Clinical Impression: Altered mental status, Substance use disorder Patient Disposition: Still a Patient
[2022-02-09 23:30] VITALS: BP 181/79; BP 98/60; PULSE 89; PULSE 99; RESP 20; O2SAT 97; BMI 27.3
[2022-02-09] MEDS: Midazolam HCl/PF 2 MG/2 ML VIAL IM (23:44)
[2022-02-09] MEDS: Haloperidol Lactate 5 MG/ML VIAL 10 MG IM (23:45)
--- NOTE | 2022-02-09 23:45 | PC.NURSE ---
Pt given IM haldol and versed. Restraint documentation started at this time.
--- NOTE | 2022-02-09 23:54 | PC.NURSE ---
Upon arrival, pt aggressive with staff, threatening to harm staff, and attempting to elope from facility. Provider ordered med restraint; pt is currently sleeping at this time.
[2022-02-10] VITALS (7 sets, daily range): BP systolic 90–129; BP diastolic 53–79; PULSE 67–80; RESP 14–21; O2SAT 92–96
[2022-02-10 00:48] LABS: MANUAL DIFF FLAG NO
[2022-02-10 00:51] LABS: Basophils Absolute Auto 0.1 X10*3/uL (0.0-0.2); Eosinophils Absolute Auto 0.3 X10*3/uL (0.0-0.4); Eosinophils Percent Auto 3.4 % (0-4); Hematocrit 39.5 % (42.0-52.0); Hemoglobin 13.8 g/dl (14.0-18.0); Imm Gran Abs Auto 0.01 X10*3/uL (0.00-0.03); Imm Gran Pct Auto 0.1 % (0.0-0.4); Lymphocytes Absolute Auto 2.4 X10*3/uL (1.2-4.9); Lymphocytes Percent Auto 30.3 % (20-40); Mean Corpuscular HGB Conc 34.9 g/dl (31.0-36.0); Mean Corpuscular Hemoglobin 31.9 pg (27.0-33.0); Mean Corpuscular Volume 91.2 fL (80.0-98.0); Mean Platelet Volume 10.2 fL (9.4-12.4); Monocytes Absolute Auto 0.6 X10*3/uL (0.1-1.2); Monocytes Percent Auto 7.2 % (2-11); Neutrophils Absolute Auto 4.7 x10*3/uL (2.0-8.3); Platelet Count 251 X10*3/uL (160-400); Red Blood Count 4.33 X10*6/uL (4.60-5.80); Red Cell Distribution Width 12.4 % (11.0-16.0)
[2022-02-10] MEDS: 0.9 % Sodium Chloride 1,000 ML 999 ML IV (00:52)
[2022-02-10 01:06] LABS: Lactic Acid 1.4 mmol/L (0.5-2.0)
[2022-02-10 01:07] LABS: COVID-19 Test Negative (Negative); Ethanol < 10 mg/dL
[2022-02-10 01:12] LABS: Alanine Aminotransferase 32 U/L (0-40); Alkaline Phosphatase 78 U/L (39-117); Anion Gap 11 (12-20); Aspartate Amino Transferase 30 U/L (5-37); Bilirubin Total 0.4 mg/dL (0.0-1.0); Blood Urea Nitrogen 14 mg/dL (9-16); Calcium 9.4 mg/dL (8.4-10.2); Carbon Dioxide 25 mmol/L (22-29); Chloride 107 mmol/L (96-108); Creatinine Clr Calc Pharmacy 86.5; Estimated Glomerular Filt Rate > 60; Glucose Random 126 mg/dL (60-115); Lipase 21 U/L (8-78); Potassium 3.9 mmol/L (3.3-5.1); Sodium 139 mmol/L (135-145); Total Protein 6.7 g/dL (6.5-8.0)
--- NOTE | 2022-02-10 01:15 | PC.NURSE ---
Spoke with Mekhi Shahid MD. Hold off on UTox for now because pt. is currently asleep, calm and cooperative
[2022-02-10 01:32] LABS: TSH reflex Free T4 0.56 uIU/mL (0.32-4.0)
== END 2022-02-10 10:03 | disposition home or self-care (01) ==
PROVIDERS: Emergency Medicine Emergency Medical Services; Emergency Provider Emergency Medicine
DX: R41.82 Altered mental status, unspecified (principal); F11.10 Opioid abuse, uncomplicated; F13.10 Sedative, hypnotic or anxiolytic abuse, uncomplicated; Z20.822 Contact with and (suspected) exposure to COVID-19; Z79.899 Other long term (current) drug therapy
CPT/HCPCS: 36415; 80053; 82077; 82550; 83605; 83690; 84443; 85025; 87635; 96360; 96372; 99284; 99285; J2250

== ENCOUNTER 2022-04-24 17:29 | Emergency (ER) | payer OTHER, SELFPAY ==
[2022-04-24] VITALS (7 sets, daily range): BP systolic 79–108; BP diastolic 49–72; PULSE 63–99; RESP 16–24; TEMP 36.1–36.8; O2SAT 96–99; BMI 28.1
--- NOTE | 2022-04-24 18:05 | ED_ITS ---
HPI - Psych General Chief Complaint: Psychiatric Symptoms Stated Complaint: SI Section 12 Time Seen by Provider: 04/24/22 17:46 Source: patient, EMS and police ([employer] ) Mode of arrival: ambulatory Limitations: other (Patient not cooperative) History of Present Illness HPI Narrative: 26-year-old male no significant medical history presents to the emergency department with EMS and [place] police suicidal ideation with possible attempt. According to report from EMS and police an acquaintance called 911 for well- being check, patient was found with what is thought to be Xanax 15 of them and patient was making suicidal comments wanted to lay in a rail road track. Upon his arrival he is not cooperative, screaming out profanities, kicking the wall, combative towards staff, harm to self and others. Tried to deescalate the situation however patient is not listening. Patient tells me he does not understand why he is. Denies medical complaints. PD foud paraphernalia on person when he was brought in. Related Data Allergies Allergy/AdvReac Type Severity Reaction Status Date / Time No Known Allergies Allergy Unverified 04/05/20 19:51 [No Known Allergies*] Review of Systems Review of Systems: Constitutional : No Fever, No Chills ENT/Mouth : No sore throat, No Rhinorrhea Eyes: No Eye Pain, No Swelling, No Redness Cardiovascular : No Chest Pain, No SOB Respiratory : No Cough, No Sputum Gastrointestinal : No Nausea, No Vomiting, No Diarrhea, No abdominal Pain Genitourinary : No Dysuria, No Hematuria Musculoskeletal : No joint pain, No Myalgias, No Joint Swelling Skin : No Skin Lesions, No rash Neuro : No Weakness, No Numbness Psych : No Anxiety, No Depression, No SI/HI/AH/VH All other systems reviewed and are negative Yes all other systems are reviewed and are negative [facility] Past Medical History Attestation statement: The following information was validated with the patient. Source: old records reviewed and nursing notes reviewed Medical History Active substance abuse Social History Social History Alcohol intake: current Alcohol intake frequency: does not drink Patient Tobacco Use Status: Current everyday Tobacco user Substance Use Type: Other Advance Directives: No Advance Directives Information Provided: No Physical Exam Vital Signs: Vital Signs: Last Vital Signs Temp 98.3 F 04/24/22 20:02 Pulse 67 04/24/22 20:02 Resp 17 04/24/22 21:40 BP 100/64 04/24/22 21:40 Pulse Ox 99 04/24/22 21:40 O2 Del Method 04/24/22 21:40 BMI result Body Mass Index 28.1 Stable vital signs Appearance: Alert.? Oriented X3.? No acute distress.? Patient screaming out profanities, combative, kicking, screaming. Head: Normocephalic, atraumatic, no step-offs or deformities Eyes: Pupils equal, round and reactive to light.? ENT: Pharynx normal.? Neck: Normal inspection.? Neck supple.? CVS: Normal heart rate and rhythm.? Pulses normal.? Respiratory: No respiratory distress.? Breath sounds normal.? Abdomen: Soft and nontender.? Skin: Skin warm and dry.? Normal skin color.? Normal skin turgor.? Extremities: No lower extremity edema.? No calf ttp. 5/5 strength to bilateral upper and lower extremities Neuro: Oriented X 3.? No motor deficit.? No sensory deficit. CN 2-12 intact Course Reevaluation(s) Reevaluation #1: Patient combative toward staff, harm to self and others, try to run out of the department, patient on a Section 12 requiring 4 point restraints at this time. There is a sitter at the bedtime. Continues to scream profanities therefore additional Haldol ordered. Time: 18:43 Reevaluation #2: CBC within normal limits. Chemistry with no acute findings. UA without infection. Urine toxicology positive for fentanyl, benzodiazepines, cocaine, marijuana. Negative ethanol. COVID negative. Patient comfortably resting with stable vitals. At this time patient will be placed into physician observation to allow more time to be evaluated by the care team or Behavioral Health. At time observation was started patient common cooperative no acute distress will continue to monitor. Time: 22:37 MDM - Psych MDM Narrative Medical decision making narrative: [id number] 26-year-old male presents with substance abuse and suicidal ideation presents with EMS and police. Physical examination benign however, patient screaming profanities, combative, kicking the wall. Plan at this time is basic labs, medical clearance and evaluation by [facility] Medical Records Attestation: I reviewed the patient's medical records. Lab Data Attestation: I reviewed the patient's lab results. Result diagrams: 04/24/22 19:10 04/24/22 19:10 Labs: Lab Results 04/24/22 04/24/22 04/24/22 Range/Units 19:10 19:10 19:10 WBC 7.2 (4.8-10.8) X10*3/uL RBC 4.61 (4.60-5.80) X10*6/uL Hgb 14.9 (14.0-18.0) g/dl Hct 42.4 (42.0-52.0) % MCV 92.0 (80.0-98.0) fL MCH 32.3 (27.0-33.0) pg MCHC 35.1 (31.0-36.0) g/dl RDW 12.3 (11.0-16.0) % Plt Count 232 (160-400) X10*3/uL MPV 9.5 (9.4-12.4) fL Immature Gran % (Auto) 0.1 (0.0-0.4) % Neut % (Auto) 70.1 (45-73) % Lymph % (Auto) 18.9 L (20-40) % [place] % (Auto) 9.0 (2-11) % Eos % (Auto) 1.2 (0-4) % Baso % (Auto) 0.7 (0-2) % Lymph # (Auto) 1.4 (1.2-4.9) X10*3/uL [place] # (Auto) 0.7 (0.1-1.2) X10*3/uL Eos # (Auto) 0.1 (0.0-0.4) X10*3/uL Baso # (Auto) 0.1 (0.0-0.2) X10*3/uL Abs Immat Gran (auto) 0.01 (0.00-0.03) X10*3/uL Absolute Neuts (auto) 5.1 (2.0-8.3) x10*3/uL Absolute Nucleated RBC 0.000 (0.0-0.012) X10*3/uL Nucleated RBC % (auto) 0.0 (0.0-0.2) /100WBC Sodium 140 (135-145) mmol/L Potassium 4.1 (3.3-5.1) mmol/L Chloride 107 (96-108) mmol/L Carbon Dioxide 22 (22-29) mmol/L Anion Gap 15 (12-20) BUN 9 (9-16) mg/dL Creatinine 0.91 (0.5-1.4) mg/dL Estim Creat Clear Calc 123.6 Estimated GFR > 60 Random Glucose 108 (60-115) mg/dL Calcium 9.3 (8.4-10.2) mg/dL Total Bilirubin 0.6 (0.0-1.0) mg/dL AST 35 (5-37) U/L ALT 31 (0-40) U/L Alkaline Phosphatase 90 (39-117) U/L Total Protein 7.3 (6.5-8.0) g/dL Albumin 4.5 (3.5-5.0) g/dL Urine Color Urine Appearance Urine pH (5.0-9.0) Ur Specific [place] [employer] (1.005-1.025) Urine Protein (Neg-Trace) mg/dL Urine Glucose (UA) (Negative) mg/dL Urine Ketones (Negative) mg/dL Urine Blood (Negative) Urine Nitrite (Negative) Ur Leukocyte Esterase (Negative) Urine Opiates Screen (Not Detect) Urine Fentanyl Screen (Not Detect) Ur Barbiturates Screen (Not Detect) Ur Phencyclidine Scrn (Not Detect) Ur Amphetamines Screen (Not Detect) U Benzodiazepines Scrn (Not Detect) Urine Cocaine Screen (Not Detect) U Marijuana (THC) Screen (Not Detect) Ethyl Alcohol < 10 mg/dL COVID-19 ([facility]IL[facility]) Negative (Negative) COVID-19 Clin Com See Note 04/24/22 04/24/22 Range/Units 21:05 21:05 WBC (4.8-10.8) X10*3/uL RBC (4.60-5.80) X10*6/uL Hgb (14.0-18.0) g/dl Hct (42.0-52.0) % MCV (80.0-98.0) fL MCH (27.0-33.0) pg MCHC (31.0-36.0) g/dl RDW (11.0-16.0) % Plt Count (160-400) X10*3/uL MPV (9.4-12.4) fL Immature Gran % (Auto) (0.0-0.4) % Neut % (Auto) (45-73) % Lymph % (Auto) (20-40) % [place] % (Auto) (2-11) % Eos % (Auto) (0-4) % Baso % (Auto) (0-2) % Lymph # (Auto) (1.2-4.9) X10*3/uL [place] # (Auto) (0.1-1.2) X10*3/uL Eos # (Auto) (0.0-0.4) X10*3/uL Baso # (Auto) (0.0-0.2) X10*3/uL Abs Immat Gran (auto) (0.00-0.03) X10*3/uL Absolute Neuts (auto) (2.0-8.3) x10*3/uL Absolute Nucleated RBC (0.0-0.012) X10*3/uL Nucleated RBC % (auto) (0.0-0.2) /100WBC Sodium (135-145) mmol/L Potassium (3.3-5.1) mmol/L Chloride (96-108) mmol/L Carbon Dioxide (22-29) mmol/L Anion Gap (12-20) BUN (9-16) mg/dL Creatinine (0.5-1.4) mg/dL Estim Creat Clear Calc Estimated GFR Random Glucose (60-115) mg/dL Calcium (8.4-10.2) mg/dL Total Bilirubin (0.0-1.0) mg/dL AST (5-37) U/L ALT (0-40) U/L Alkaline Phosphatase (39-117) U/L Total Protein (6.5-8.0) g/dL Albumin (3.5-5.0) g/dL Urine Color Yellow Urine Appearance Clear Urine pH 7.5 (5.0-9.0) Ur Specific [place] [employer] 1.015 (1.005-1.025) Urine Protein Negative (Neg-Trace) mg/dL Urine Glucose (UA) Negative (Negative) mg/dL Urine Ketones Negative (Negative) mg/dL Urine Blood Negative (Negative) Urine Nitrite Negative (Negative) Ur Leukocyte Esterase Negative (Negative) Urine Opiates Screen Not Detected (Not Detect) Urine Fentanyl Screen POSITIVE H (Not Detect) Ur Barbiturates Screen Not Detected (Not Detect) Ur Phencyclidine Scrn Not Detected (Not Detect) Ur Amphetamines Screen Not Detected (Not Detect) U Benzodiazepines Scrn POSITIVE H (Not Detect) Urine Cocaine Screen POSITIVE H (Not Detect) U Marijuana (THC) Screen POSITIVE H (Not Detect) Ethyl Alcohol mg/dL COVID-19 ([facility]A) (Negative) COVID-19 Clin Com Critical Care Time Critical Care Time Critical Care Time: No Discharge Plan Discharge Clinical Impression: Polysubstance abuse, Suicidal ideation Patient Disposition: Still a Patient
[2022-04-24] MEDS: diphenhydrAMINE HCL 50 MG/ML VIAL IM (18:32)
[2022-04-24] MEDS: Haloperidol Lactate 5 MG/ML VIAL IM ×2 (18:33→18:50)
[2022-04-24 19:16] LABS: MANUAL DIFF FLAG NO
[2022-04-24 19:18] LABS: Basophils Absolute Auto 0.1 X10*3/uL (0.0-0.2); Basophils Percent Auto 0.7 % (0-2); Eosinophils Absolute Auto 0.1 X10*3/uL (0.0-0.4); Eosinophils Percent Auto 1.2 % (0-4); Hematocrit 42.4 % (42.0-52.0); Hemoglobin 14.9 g/dl (14.0-18.0); Imm Gran Abs Auto 0.01 X10*3/uL (0.00-0.03); Imm Gran Pct Auto 0.1 % (0.0-0.4); Lymphocytes Absolute Auto 1.4 X10*3/uL (1.2-4.9); Lymphocytes Percent Auto 18.9 % (20-40); Mean Corpuscular HGB Conc 35.1 g/dl (31.0-36.0); Mean Corpuscular Hemoglobin 32.3 pg (27.0-33.0); Mean Platelet Volume 9.5 fL (9.4-12.4); Monocytes Absolute Auto 0.7 X10*3/uL (0.1-1.2); Neutrophils Absolute Auto 5.1 x10*3/uL (2.0-8.3); Neutrophils Percent Auto 70.1 % (45-73); Platelet Count 232 X10*3/uL (160-400); Red Blood Count 4.61 X10*6/uL (4.60-5.80); Red Cell Distribution Width 12.3 % (11.0-16.0); White Blood Count 7.2 X10*3/uL (4.8-10.8)
[2022-04-24 19:34] LABS: COVID-19 Test Negative (Negative); IDNOW Serial# 55D5AD1C
[2022-04-24 19:36] LABS: Alanine Aminotransferase 31 U/L (0-40); Albumin Level 4.5 g/dL (3.5-5.0); Alkaline Phosphatase 90 U/L (39-117); Anion Gap 15 (12-20); Aspartate Amino Transferase 35 U/L (5-37); Bilirubin Total 0.6 mg/dL (0.0-1.0); Blood Urea Nitrogen 9 mg/dL (9-16); Calcium 9.3 mg/dL (8.4-10.2); Carbon Dioxide 22 mmol/L (22-29); Chloride 107 mmol/L (96-108); Creatinine Clr Calc Pharmacy 123.6; Estimated Glomerular Filt Rate > 60; Ethanol < 10 mg/dL; Glucose Random 108 mg/dL (60-115); Potassium 4.1 mmol/L (3.3-5.1); Sodium 140 mmol/L (135-145); Total Protein 7.3 g/dL (6.5-8.0)
[2022-04-24 21:59] LABS: Appearance Urine Clear; Color Urine Yellow; Glucose Urine UA Negative (Negative); Leukocyte Esterase Urine Negative (Negative); Nitrite Urine Negative (Negative); PH 7.5 (5.0-9.0); Specific Gravity - Urine 1.015 (1.005-1.025); Urine Blood Negative (Negative); Urine Ketones Negative (Negative); Urine Protein Negative (Neg-Trace)
[2022-04-24 22:17] LABS: Amphetamine Screen Urine Not Detected (Not Detect); Barbiturates, Urine Not Detected (Not Detect); Benzodiazepines Screen Urine POSITIVE (Not Detect); Cannabinoid Screen Urine POSITIVE (Not Detect); Cocaine Screen Urine POSITIVE (Not Detect); Fentanyl, urine POSITIVE (Not Detect); Opiate Screen Urine Not Detected (Not Detect); Phencyclidine Screen Urine Not Detected (Not Detect)
[2022-04-25] VITALS: BP 95/63
[2022-04-25 00:27] VITALS: BP 102/62; PULSE 69; RESP 14; O2SAT 98
[2022-04-25 00:49] LABS: Acetaminophen LAB < 1 mcg/mL (<30); Salicylate < 5.0 mg/dL (15-30)
--- NOTE | 2022-04-25 06:57 | PC.NURSE ---
Patient slept through the night, patient was restraint both chemically and mechanically in main ED, no distress observed/reported, [facility] referral completed/confirmed/pending ETA, med rec completed/patient is only on nicotine gum, no behavior concerns at this time, will continue to monitor.
--- NOTE | 2022-04-25 07:22 | PC.NURSE ---
Report received. Pt currently resting, asking to go home. Pt waiting to be seen by crisis.
[2022-04-25 07:52] VITALS: BP 100/45; PULSE 78; RESP 16; TEMP 36.7; O2SAT 96
--- NOTE | 2022-04-25 09:20 | MHC.CARE ---
Pt is a 26 year old single male who presented to the ED after PD were called for a wellness check after a question of suicidal ideaiton. pt currently denies SI plan, intent or means. Pt denies current HI/AH/VH. Pt has ongoing substance use and tested positive for fentanyl, benzos,cocaine and marijuana. Pt has providers at [facility] and is part of the methadone clinic. Pt denies history of prior [facility] hospitalizations. Pt reports no history of suicide attempts or gestures. Pt states he resides in [place] and is originally from [place]. Pt state he works for the [employer]. Pt is not reporting sleep and appetite disturbances. Pt declines wanting to speak with the recovery team. Plan for Pt to be discharged to follow up with outpatient providers. Pt was not interested in meeting with the recovery team at this time. Pt is provided with [facility] crisis information and verbalized understating of how to utilize supports. Pt will be provided with narcan to go. Case reviewed with Dr. Shahid who is in agreement with plan of care.
== END 2022-04-25 09:49 | disposition home or self-care (01) ==
PROVIDERS: Physician Assistant; Emergency Provider Student in an Organized Health Care Education/Training Program
DX: F19.10 Other psychoactive substance abuse, uncomplicated (principal); R45.6 Violent behavior; R45.851 Suicidal ideations; F11.20 Opioid dependence, uncomplicated; F17.200 Nicotine dependence, unspecified, uncomplicated; Z20.822 Contact with and (suspected) exposure to COVID-19
CPT/HCPCS: 80053; 80143; 80179; 80307; 81003; 82077; 85025; 87635; 96372; 99285; J1200

== ENCOUNTER 2025-03-06 19:01 | Emergency (ER) | payer OTHER, SELFPAY ==
--- NOTE | ~2025-03-06 | XR_ITS ---
CLINICAL HISTORY: low oxygen saturations 1 view chest x-ray Comparison: None provided Findings: Low lung volumes with mild bibasilar atelectasis and/or pneumonitis. No pneumothorax or pleural effusion. Cardiac silhouette and mediastinum accentuated by AP technique. No acute fracture common by one view x-ray. IMPRESSION: Mild bibasilar atelectasis/pneumonitis. This document has been electronically signed by: Robert Solorzano MD on 03/06/2025 19:50:30
[2025-03-06 19:14] VITALS: BP 119/84; BP 126/79; PULSE 133; PULSE 140; RESP 18; TEMP 37.3; O2SAT 87; O2SAT 89; BMI 30.4
--- NOTE | 2025-03-06 19:21 | ED_ITS ---
HPI - General Adult General Chief complaint: Overdose Stated complaint: OD, 80% RA Time Seen by Provider: 03/06/25 19:21 History of Present Illness ED Provider: Arnaud WELCH narrative: The patient is a 29-year-old male who was brought to the hospital after friends called an ambulance. He was apparently found unresponsive by a friend in the bathroom, unresponsive. The friend told paramedics that the patient has been cyanotic. When paramedics arrived the patient was arousable and did not require naloxone but he was found to be tachycardic and had an oxygen requirement. The patient said that he had snorted 4 tablets of Vicodin at around 17:00. He said that he did this because his arm was hurting. He denies snorting the Vicodin with any suicidal intent or any intent at self-harm. The patient says that he has recently been in custodial. He was released 4 days ago. He says that he is on clonidine and hydroxyzine as prescription medications. He denies overdosing on these medications. He denies having any intent to harm himself. He denies injecting any drugs. He denies any history of heart disease. He denies any history of lung disease. He denies any history of a blood clotting disorder of any kind. Related Data Home Medications ?Medication ?Instructions ?Recorded ?Confirmed nicotine (polacrilex) 4 mg buccal 4 mg PO Q4H PRN Shan joanna Cravings 04/25/22 04/25/22 lozenge Allergies Allergy/AdvReac Type Severity Reaction Status Date / Time No Known Allergies (No Known Allergy Verified 03/06/25 19:18 Allergies*) Review of Systems Review of Systems: Yes all other systems are reviewed and are negative [facility] Past Medical History Medical History Active substance abuse Social History Social History Alcohol intake: current Alcohol intake frequency: does not drink Patient Tobacco Use Status: Current everyday Tobacco user Substance Use Type: Other Advance Directives: No Advance Directives Information Provided: No Physical Exam ED Vital Signs: Vital Signs - 24 hr 03/06/25 19:14 03/06/25 20:14 03/06/25 20:54 Temperature 99.2 F Pulse Rate 133 H 108 H 99 Respiratory Rate 18 18 18 Blood Pressure 126/79 116/89 Pulse Oximetry 89 L 95 Oxygen Delivery Method Room Air Room Air 03/06/25 21:12 Temperature 98.3 F Pulse Rate 99 Respiratory Rate 18 Blood Pressure 116/89 Pulse Oximetry 95 Oxygen Delivery Method Room Air BMI result Body Mass Index 30.4 Const Other: The patient is a muscular 29-year-old who was awake and alert and does not seem in acute distress. Orientation/consciousness: patient oriented x3 HENMT Other: The face is symmetrical. Mucous membranes moist. Eyes Other: Pupils are round equal, conjunctivae are clear, extraocular movements intact Neck Neck: Yes normal visual inspection, Yes full ROM and Yes no lymphadenopathy Resp Effort & Inspection: normal respiratory effort Auscultation: clear to auscultation bilaterally Cardio Other: No murmur Rate: tachycardic Rhythm: regular rhythm Heart sounds: S1 normal heart sound present and S2 normal heart sound present GI Other: abdomen is soft and nontender Skin Other: The skin is dry and unremarkable Neuro General: patient oriented x3, gait normal, tone normal, moves all extremities, no focal motor deficits and CN's II-XI intact bilaterally Extrem Other: There is no calf swelling or tenderness. No asymmetry. No peripheral edema. Medications Administered Discontinued Medications Generic Name Dose Route Start Last Admin Trade Name Freq PRN Reason Stop Dose Admin Albuterol/Ipratropium 3 ml 03/06/25 20:06 03/06/25 20:14 Albuterol/Iprat 2.5/0.5mg 3 Ml Ampul.Neb INHALE 03/06/25 20:07 3 ml ONCE ONE Administration Medical Decision Making Medical Decision Making [facility] Narrative: the patient is a 29-year-old male who apparently collapsed after snorting drugs at home. He claims that he crushed and snorted for Vicodin tablets. This was in a bathroom at place where he has been staying. A friend called 911 because the patient was unresponsive and cyanotic. When paramedics arrived the patient was awake and alert but apparently had oxygen saturations in the 80s. The patient wanted to refused transport to the hospital. Paramedics called for medical control and were advised to transport the patient to the emergency department despite the patient's objections. The patient allowed himself to be brought to the hospital but continued to objective being here after arriving in the emergency department. He states that he recently got out of retirement. He says he has used substances in the past but this was the 1st use he has had since leaving retirement a few days ago. He claims that he had no suicidal intent or any attempt to harm himself. He says that he has been having pain in his right upper arm for about 2 months. He believes he has a right biceps injury. He says that he snorted the Vicodin in part because of the pain in his right upper arm. On exam his right arm does not have any objective abnormalities. All of his extremities seem well-perfused and non swollen. Here he was tachycardic with a heart rate in the 130s. Oxygenation on room air was in the mid 80s. The patient was placed on oxygen. I had a plan to evaluate the patient for his abnormal vital signs but the patient refused any blood work to be done and continued to expresses desire to be discharged. He did not seem intoxicated or disoriented in any way. The patient allowed a portable chest x-ray to be done which was read as showing possible atelectasis or pneumonitis. He allowed an EKG to be done which showed normal sinus rhythm at 100 beats per minute. Additionally he accepted treatment with a DuoNeb updraft (despite the absence of wheezing on his exam). He was observed and continued to state that he only wished to be discharged and that he had no shortness of breath and that he had no chest pain and that he had no pleuritic pain. He was observed over a 2 hour. During which time his vital signs seemed to improve. His heart rate came down to a proximally 100 and his oxygenation on room air improved to 95%. He continued to refuse any phlebotomy. I explained that I was most concerned about the possibility of a blood clot in his lungs which could be potentially fatal. The patient acknowledged this but continued to refuse phlebotomy. He was neither suicidal nor homicidal. I do not feel that I had any grounds on which to impose any medical investigations against his will. I did not feel that I had any grounds on which to detain him in the emergency room. I made it very clear that I was concerned that something dangerous such as a pulmonary embolism might be at work and that investigation for this would be appropriate. The patient continued to refuse any phlebotomy or IV access. Ultimately I felt I had no option but to discharge him. I felt somewhat better that his vital signs had improved significantly. It is possible that his tachycardia and his hypoxia was related to some kind of insufflation issue from snorting the med ications that he snorted and that he was recovering. the patient understood that he had not had a full evaluation and he acknowledged that he would return to the emergency room if he felt worse. The patient says that he has only recently been released from retirement. He does not have a local primary care doctor. He says that he plans on leaving the state in the next few days. He was therefore advised that if he has any medical concerns in the short term he should return to the emergency room. Discharge Plan Discharge Clinical Impression: Inhalation injury Patient Disposition: Home, Self-Care Additional Instructions: My biggest concern about how you are doing today is that your heart rate was fast and your oxygen level was less than it should be. My assumption is that this has to do with the what you inhaled earlier today. My hope is that you will recover without any severe consequences. I would recommend avoiding doing anything similar in the future. Please try to rest and take it easy. If you drink lot of water please make sure you eat some food with a. Too much pure water can be problematic. If at any point you feel significantly worse please return to the emergency room for a more thorough investigation. Prescriptions: No Action nicotine (polacrilex) 4 mg lozenge 4 mg PO Q4H PRN (Reason: Nicotine Cravings) Interventions: ED Discharge Assessment Last Done: 03/06/25 21:12 Discharge Date/Time: 03/06/25 21:12 Print Language: Tajik
--- NOTE | 2025-03-06 19:23 | ECG_ITS ---
Test Reason : od Blood Pressure : */* mmHG Vent. Rate : 100 BPM Atrial Rate : 100 BPM P-R Int : 122 ms QRS Dur : 76 ms QT Int : 334 ms P-R-T Axes : 33 14 22 degrees QTcB Int : 430 ms Normal sinus rhythm Normal ECG No previous ECGs available Referred By: Pastor Lares Electronically Signed By: EVONNE KEVIN MD
--- NOTE | 2025-03-06 20:10 | PC.NURSE ---
Patient arrived to ED after becoming unresponsive at home after snorting 4 tabs of Vicodin. Patient is alert/oriented, answers questions appropriately. Noted to be tachycardic 120s-130s on thread pulling machine attendant. 87-90% on room air. Lungs clear to auscultation. Pulse oximetry readings improve quickly. Denies pulmonary disorders/problems. Patient agreed to wand & search, but refused to change into hospital gown. Wearing a wolfe tshirt and black gym shorts. No findings. Other belongings secured by security in [facility]. Patient refusing blood work & labs, but agreed to xray, EKG, cardiac monitoring, and updraft. Dr. Lares & charge entry clerk aware of this. Dr. Lares went to bedside to speak with patient, but patient continues to refuse. Patient is able to make own decisions, is coherent. Care ongoing by this RN.
[2025-03-06 20:14] VITALS: PULSE 108; RESP 18; O2SAT 94
[2025-03-06] MEDS: Albuterol/Iprat 2.5/0.5MG 3 ML AMPUL.NEB INHALE (20:14)
[2025-03-06 20:54] VITALS: BP 116/89; PULSE 99; RESP 18; O2SAT 95
[2025-03-06 21:12] VITALS: BP 116/89; PULSE 99; RESP 18; TEMP 36.8; O2SAT 95
== END 2025-03-06 21:12 | disposition home or self-care (01) ==
PROVIDERS: Emergency Provider Emergency Medicine
DX: T39.1X1A Poisoning by 4-Aminophenol derivatives, accidental (unintentional), initial encounter (principal); R40.4 Transient alteration of awareness; R00.0 Tachycardia, unspecified; F17.210 Nicotine dependence, cigarettes, uncomplicated; Z71.51 Drug abuse counseling and surveillance of drug abuser
CPT/HCPCS: 71045; 93005; 94640; 99284; 99285

== ENCOUNTER → 2025-03-06 19:23 | Outpatient (BNV) | payer OTHER, SELFPAY | PROVIDERS: Emergency Provider Emergency Medicine; Visit Provider Radiology Neuroradiology | DX: J98.11 Atelectasis (principal) | CPT/HCPCS: 71045 ==

== ENCOUNTER → 2025-03-06 19:23 | Outpatient (BNV) | payer OTHER, SELFPAY | PROVIDERS: Emergency Provider Emergency Medicine; Visit Provider Internal Medicine Cardiovascular Disease | DX: T40.2X1A Poisoning by other opioids, accidental (unintentional), initial encounter (principal) | CPT/HCPCS: 93010 ==

== ENCOUNTER 2025-04-10 09:04 | Emergency (ER) | payer OTHER, SELFPAY ==
[2025-04-10 09:15] VITALS: BP 130/75; PULSE 92; RESP 16; TEMP 36.1; O2SAT 96; BMI 33.4
--- NOTE | 2025-04-10 09:23 | ED_ITS ---
HPI - General Adult General Chief complaint: General Medical Stated complaint: missed methadone dose Time Seen by Provider: 04/10/25 09:23 Source: patient Mode of arrival: ambulatory Limitations: no limitations History of Present Illness ED Provider: Marianela Vicente PA-C HPI narrative: Patient is a 29 year old assigned male at with a history of IVDU and previous methadone use presenting to the emergency department today requesting he be restarted on methadone. Patient states that he last used heroin yesterday. Patient states that he was previously on methadone but stopped and began using again. Patient states that he is interested in the long acting injectable medications. Patient denies any other complaints at this time. Related Data Home Medications ?Medication ?Instructions ?Recorded ?Confirmed nicotine (polacrilex) 4 mg buccal 4 mg PO Q4H PRN Shan joanna Cravings 04/25/22 04/25/22 lozenge Allergies Allergy/AdvReac Type Severity Reaction Status Date / Time No Known Allergies (No Known Allergy Verified 04/10/25 09:16 Allergies*) Review of Systems Constitutional: Constitutional: Reports as per HPI Eyes: Eyes: Reports as per HPI ENT: Reports as per HPI Cardiovascular: Cardiovascular: Reports as per HPI Respiratory: Respiratory: Reports as per HPI Gastrointestinal: Gastrointestinal: Reports as per HPI Genitourinary: Genitourinary: Reports as per HPI Musculoskeletal: Musculoskeletal: Reports as per HPI Integumentary/Breasts: Skin/Breast: Reports as per HPI Neurologic: Reports as per HPI Psychiatric: Psychiatric: Reports as per HPI Endocrine: Endocrine: Reports as per HPI Hematologic/Lymphatic: Hematologic/Lymphatic: Reports as per HPI Allergic/Immunologic: Allergic/Immunologic: Reports as per HPI PMF Past Medical History Attestation statement: The following information was validated with the patient. Source: old records reviewed and nursing notes reviewed Medical History Active substance abuse Social History Social History Alcohol intake: current Alcohol intake frequency: does not drink Patient Tobacco Use Status: Current everyday Tobacco user Substance Use Type: Other Advance Directives: No Advance Directives Information Provided: No Physical Exam ED Vital Signs: Vital Signs - 24 hr 04/10/25 09:15 04/10/25 10:30 Temperature 97.0 F 97.0 F Pulse Rate 92 92 Respiratory Rate 16 16 Blood Pressure 130/75 130/75 Pulse Oximetry 96 96 Oxygen Delivery Method Room Air Room Air BMI result Body Mass Index 33.4 Const General: cooperative, no acute distress, alert and awake Nutritional Appearance: well nourished Orientation/consciousness: patient oriented x3 HENMT Head: Yes normal to inspection and Yes atraumatic Ears: hearing grossly normal bilaterally and external ears normal General nose exam: Normal external nose present, no nasal discharge noted and no epistaxis Face and sinus: Yes normal facial exam, No abrasion and No laceration Mouth: Normal oral and palatal mucosa present, no drooling and no muffled voice Eyes General: appearance normal, both eyes and all related structures Periorbital: periorbital findings normal Eyelids: Yes eyelids normal Conjunctivae: conjunctivae normal Pupils: Equal, round and reactive pupils present EOM: EOMs intact bilaterally Neck Neck: Yes normal visual inspection and Yes full ROM Resp Effort & Inspection: normal respiratory effort and able to speak in complete sentences Neuro General: patient oriented x3, moves all extremities and CN's II-XI intact bilaterally Cranial nerves: Yes Equal, round and reactive pupils present Cognition (Neuro): normal cognition Extrem General: Yes normal to inspection, Yes full ROM and Yes capillary refill normal Psych Appearance: grossly normal Mental Status: mental status grossly normal Affect: normal affect Attitude: cooperative Thought process: Normal thought process present Thought content: Normal thought content present Insight: Good insight present (Psych) Medications Administered Discontinued Medications Generic Name Dose Route Start Last Admin Trade Name Sacha PRN Reason Stop Dose Admin Methadone HCl 40 mg 04/10/25 09:52 04/10/25 10:25 Methadone Hcl 20 Mg/2 Ml Oral.Conc PO 04/10/25 09:53 40 mg ONCE ONE Administration Naloxone HCl 8 mg 04/10/25 10:24 04/10/25 10:26 Naloxone Hcl Nasal Take Home 4 Mg Cavalier NOSTRILALT 04/10/25 10:25 8 mg ONCE ONE Administration Medical Decision Making Medical Decision Making [facility] Narrative: Patient is a 29 year old assigned male at with a history of IVDU and previous methadone use presenting to the emergency department today requesting he be restarted on methadone. Patient's physical exam was unremarkable. Patient's EKG was unremarkable. I explained my physical exam findings as well as all test results to the patient. I answered all questions asked by the patient. Patient was evaluated by the addiction team and together they determined he would be restarted on Methadone and follow up with [facility]. Patient received his first dose of methadone, without incident. I stressed the importance of the patient taking his medication as directed (either prescribed or as the over the counter packaging recommends). I stressed the importance of the patient following up with his primary care provider and the [facility] addiction team. I stressed the importance of the patient returning to the emergency department immediately if he were to develop any dizziness, shortness of breath, difficulty breathing, chest pain, blurry vision, loss of vision, nausea, vomiting, abdominal pain, fever, chills, back pain, or any other complaints. Patient verbalized agreement and understanding with this treatment plan and discharge. Take home narcan was ordered. Differential Diagnosis Differential Diagnoses: The differential diagnosis associated with the presentation includes Methadone use IVUD Opiate dependence Admission/Observation Consideration of admission/observation: Escalation of care including admission/observation considered Patient would have been admitted to the hospital had his work up had any findings where hospital admission was appropriate and his clinical presentation warranted hospital admission. Consult Healthcare Provider Management of the patient was discussed with: Electron Tube Assembler (spoke with the addiction team as noted in the MDM Rationale portion of this note. ) Independent Interpretation I performed an independent interpretation of an: EKG Interpretation: I independently interpreted this EKG and am in agreement with the below findings: Vent. Rate: 73 BPM Atrial Rate: 73 BPM P-R Int: 142 ms QRS Dur: 88 ms QT Int: 388 ms P-R-T Axes: 25 15 23 degrees QTcB Int: 427 ms Normal sinus rhythm Nonspecific T wave abnormality When compared with ECG of 06-Mar-2025 20:15, Nonspecific T wave abnormality now evident in Anterior leads DD/ [id number] Radiology Impression Discussion of test interpretation with radiology: I have reviewed the radiologist's reading. Discharge Plan Discharge Clinical Impression: Opioid use disorder, severe, dependence Patient Disposition: Home, Self-Care Additional Instructions: You were given your first dose of methadone today. Please follow up with [facility] as directed to continue this and eventually get transitioned over to the injectable as you requested. You were offered narcan to go home with - this is in line with state law. Please take it - even if you do not think you'll need it for YOU, someone else around you may one day need it. IF you are prescribed home medications and/or you are taking over the counter medications at home - it is very important you continue to do so as prescribed / directed unless told otherwise. Follow up with a primary care provider. Return to the emergency department immediately if your symptoms worsen or if you develop any numbness, tingling, dizziness, shortness of breath, difficulty breathing, chest pain, blurry vision, loss of vision, nausea, vomiting, abdominal pain, fever, chills, back pain, or any other complaints. If you do not have a primary care provider - call any of the below numbers to establish and follow up with a primary care provider. [facility] ([place]) [phone] [place] [address], [address] [facility] ([address]) [phone] [place] [address], [address] [facility], [address] [facility] ([address]) [phone] [place] [address], [address] [facility], [address] [facility] ([place]) [phone] [place] [address], [address] [facility], [address] [facility] [phone] [address] [facility], [address] Please see the information below about our Patient Portal. If you are not yet enrolled in the [facility] Patient Portal, you will receive an enrollment email invitation following your visit to any [facility] setting. You may also self-enroll in the Patient Portal by visiting our website: [email or web address] The following information is required to access the Patient Portal: - Your [facility] Medical Record Number - Your personal home email address (must match what is in your electronic medical record, Registration staff can assist with this) - Name - Date of Capabilities of the Patient Portal: - Message some providers - View upcoming appointments - Access your health summary, medical history, and visit history - View current conditions and allergies - View procedure and lab results - View your medications, including guidelines, side effects, and precautions - Complete pre-appointment questionnaires requested by your provider - Ready summary reports of your office visits and procedures To access the Patient Portal Mobile [employer], follow these directions: - Search [employer] in the Salo Store or [employer] Store - Download the Salo - Search for [facility] - Enter your login/password IF you are prescribed home medications and/or you are taking over the counter medications at home - it is very important you continue to do so as prescribed / directed unless told otherwise. Follow up with your primary care provider. Return to the emergency department immediately if your symptoms worsen or if you develop any numbness, tingling, dizziness, shortness of breath, difficulty breathing, chest pain, blurry vision, loss of vision, nausea, vomiting, abdominal pain, fever, chills, back pain, or any other complaints. Please see the information below about our Patient Portal. If you are not yet enrolled in the [facility] Patient Portal, you will receive an enrollment email invitation following your visit to any [facility] care setting. You may also self-enroll in the Patient Portal by visiting our website: [email or web address] The following information is required to access the Patient Portal: - Your [facility] Medical Record Number - Your personal home email address (must match what is in your electronic medical record, Registration staff can assist with this) - Name - Date of Capabilities of the Patient Portal: - Message some providers - View upcoming appointments - Access your health summary, medical history, and visit history - View current conditions and allergies - View procedure and lab results - View your medications, including guidelines, side effects, and precautions - Complete pre-appointment questionnaires requested by your provider - Ready summary reports of your office visits and procedures To access the Patient Portal Mobile [employer], follow these directions: - Search [employer] in the [employer] Store or [employer] Store - Download the Salo - Search for [facility] - Enter your login/password Prescriptions: No Action nicotine (polacrilex) 4 mg lozenge 4 mg PO Q4H PRN (Reason: Nicotine Cravings) Interventions: ED Discharge Assessment Last Done: 04/10/25 10:30 Print Language: Wallisian
--- NOTE | 2025-04-10 09:23 | ECG_ITS ---
Test Reason : qtc check Blood Pressure : */* mmHG Vent. Rate : 73 BPM Atrial Rate : 73 BPM P-R Int : 142 ms QRS Dur : 88 ms QT Int : 388 ms P-R-T Axes : 25 15 23 degrees QTcB Int : 427 ms Normal sinus rhythm Nonspecific T wave abnormality Abnormal ECG When compared with ECG of 06-Mar-2025 20:15, Nonspecific T wave abnormality now evident in Anterior leads Referred By: Marianela Vicente Electronically Signed By: Raul Pepe
--- NOTE | 2025-04-10 09:56 | HO.ADDICTCON ---
History of Present Illness Date of Service: 04/10/2025 Chief Complaint: missed methadone dose Reason for Consult: opioid overdose Sources of Information: patient interviewed and chart reviewed HPI Narrative: Patient is a 29 year old male with history of OUD, who [place] [facility] [place]/o acute opiate withdrawal sx. Consult requested to evaluate and treat--as patient also had questions about transitioning to buprenorphine following methadone initiation. Patient seen in main ED. He is awake, alert, engaged in interview. Withdrawal sx include, restlessness, anxiety and irritability and joint pain. Patient visibly diaphoretic when seen by t/w. Reporting last use was last evening. States he is using approx 1/2 to 1 bundle daily IV. Discussed withdrawal management strategies, including MOUD. He states that his goal is to eventually start HUFF buprenorphine, but he does not feel able to withstand any withdrawal sx beyond what he is experiencing now to start oral bupe. Discussed starting methadone and transitioning to buprenorphine at [facility], patient agreeable with this. Full treatment history not reviewed, as patient was uncomfortable 02/2025 he presented to ED following concern that he inhaled vicodin and was quite tachycardic. No narcan required. Does report that prior to this ED vivit in February he had been incarcerated for some time. Medical Evaluation Reviewed: Yes Review of Systems Constitutional: Reports as per HPI and Reports no additional constitutional complaints Diagnostics Vital Signs (24Hr): Vital Signs - 24 hr 04/10/25 09:15 Temperature 97.0 F Pulse Rate 92 Respiratory Rate 16 Blood Pressure 130/75 Pulse Oximetry 96 Oxygen Delivery Method Room Air BMI result Body Mass Index 33.4 Mental Status Exam Mental Status Exam Patient Appearance: Perspiring and Appropriate Patient Orientation: Person, Place, Time and Situation Level of Consciousness: Awake and Appropriate Patient Behavior: Appropriate and Cooperative Affect Description: Appropriate and Anxious Speech Pattern: Clear Hallucinations: None Judgement: Good Medications Medications Current Medications Methadone HCl (Methadone Hcl 20 Mg/2 Ml Oral.Conc) 40 mg PO ONCE ONE Stop: 04/10/25 09:53 Allergies Allergies Allergy/AdvReac Type Severity Reaction Status Date / Time No Known Allergies (No Known Allergy Verified 04/10/25 09:16 Allergies*) Assessment & Plan Assessment & Plan (1) Opioid use disorder, severe, dependence: Status: Acute Code(s): F11.20 - Opioid dependence, uncomplicated Assessment and Plan: acute withdrawal methadone 40mg X1 Referral to [facility] for continuation of treatment as patient would like to transition to buprenorphine at some point take home narcan Total time managing care of this patient today __30__ minutes. PMFSH Past Medical History Medical History Active substance abuse Social History Social History Alcohol intake: current Alcohol intake frequency: does not drink Patient Tobacco Use Status: Current everyday Tobacco user Substance Use Type: Other Advance Directives: No Advance Directives Information Provided: No
[2025-04-10] MEDS: methADONE HCl 20 MG/2 ML ORAL.CONC 40 MG PO (10:25)
[2025-04-10] MEDS: Naloxone HCl Nasal TAKE HOME 4 MG SPRAY 8 MG NOSTRILALT (10:26)
[2025-04-10 10:30] VITALS: BP 130/75; PULSE 92; RESP 16; TEMP 36.1; O2SAT 96
--- OUTSIDE RECORDS SUMMARY | 2025-04-10 11:08 | XMS_ITS | Clinical Summary ---
Author Organization [facility] [address] [place] [address] [address] [place] [address] Phone Care Team Providers Care Natural [employer] Basis Trader Name Role Phone Bradley Archuleta MD Primary Care Provider [phone] Social History Tobacco Use Types Packs/Day Years Used Date Smoking Tobacco: Never Assessed Sex and Gender Information Value Date Recorded Sex Assigned at Not on file Legal Sex Male 12:15 AM EST Gender Identity Not on file Sexual Orientation Not on file Plan of Treatment Upcoming Encounters Date Type Department Care Team ([facility] st Contact Info) Description 04/13/2025 4:00 PM EDT Office Visit Internal Medicine - [place] [address] [place] [address] Fletcher Granger NP [address] [place] [address] Health Maintenance Due Date Last Done Comments DTaP,Tdap,and Td Vaccines (1 - Tdap) 2012 Hepatitis B Vaccines (1 of 3 - 19+ 3-dose series) 2012 Depression Screening 07/20/2024 COVID-19 Vaccine (1 - 2023-2 5 season) 2025 Influenza Vaccine (#1) 2025 HIV Screening 03/29/2025 Hepatitis C Screening 03/29/2025 Social Influencers of Health Screening 03/29/2025 HIB Vaccines Aged Out No longer eligi ble based on patient's age to complete this topic HPV Vaccines Aged Out No longer eligi ble based on patient's age to complete this topic Hepatitis A Vaccines Aged Out No long er eligible based on patient's age to complete this topic IPV Vaccines Aged Out No longer eligi ble based on patient's age to complete this topic MMR Vaccines Aged Out No longer eligi ble based on patient's age to complete this topic Meningococcal ACWY Vaccine Aged Out N o longer eligible based on patient's age to complete this topic Meningococcal B Vaccine Aged Out No l onger eligible based on patient's age to complete this topic Pneumococcal Vaccine: Pediat rics (0 to 5 Years) and At-Risk Patients (6 to 49 Years) Aged Out No longer eligible b ased on patient's age to complete this topic RSV Immunization Patients Un sabine 20 months Aged Out No longer eligible b ased on patient's age to complete this topic Varicella Vaccines Aged Out No longer eligible based on patient's age to complete this topic Insurance MEDICAID - [place] Care Teams Natural Gas Basis Trader Relationship Specialty Start Date End Date Bradley Archuleta MD [address] [facility] [address] [place] [address] PCP - General Internal Medicine 03/29/25
== END 2025-04-10 11:05 | disposition home or self-care (01) ==
PROVIDERS: Emergency Provider Emergency Medicine
DX: F11.20 Opioid dependence, uncomplicated (principal); F17.210 Nicotine dependence, cigarettes, uncomplicated; R94.31 Abnormal electrocardiogram [ECG] [EKG]
CPT/HCPCS: 93005; 99283

== ENCOUNTER → 2025-04-10 09:23 | Outpatient (BNV) | payer OTHER, SELFPAY | PROVIDERS: Emergency Provider Emergency Medicine; Visit Provider Internal Medicine Cardiovascular Disease | DX: R94.31 Abnormal electrocardiogram [ECG] [EKG] (principal); Z13.6 Encounter for screening for cardiovascular disorders | CPT/HCPCS: 93010 ==

== ENCOUNTER → 2025-04-10 09:24 | Outpatient (BNV) | payer OTHER, SELFPAY | PROVIDERS: Emergency Provider Emergency Medicine; Visit Provider Nurse Practitioner Psychiatric/Mental Health | DX: F11.20 Opioid dependence, uncomplicated (principal) | CPT/HCPCS: 99282 ==